=== PATIENT | male | born 1970 | race African-American/Black ===

== ENCOUNTER 2021-03-22 12:44 | Emergency (ER) | payer BC ==
--- NOTE | 2021-03-22 12:47 | EDM.PDOC ---
ED HPI GENERAL MEDICAL PROBLEM - General Stated Complaint: DEHYDRATED Time Seen by Provider: 03/22/21 12:46 Source of Information: Reports: Patient History Limitations: Reports: No Limitations - History of Present Illness INITIAL COMMENTS - FREE TEXT/NARRATIVE: HISTORY AND PHYSICAL: History of present illness: Patient is a 50-year-old male who presents to the emergency room with complaints of fatigue, subjective fever, chills, dry nonproductive cough, upper abdominal pain and decreased oral intake. Patient states he has not wanted to eat or drink much over the past 4 to 5 days, concerned he is dehydrated. He also has some generalized upper abdominal pain, nontender to touch. Patient denies any headache, change in vision, syncope or near syncope. Denies any chest pain, back pain, shortness of breath, nausea, vomiting, diarrhea, constipation or dysuria. Has not noted any blood in urine or stool. Patient has been eating and drinking appropriately. No recent travel or sick contacts. Review of systems: As per history of present illness and below otherwise all systems reviewed and negative. Past medical history: As per history of present illness and as reviewed below otherwise noncontri butory. Surgical history: As per history of present illness and as reviewed below otherwise noncontributory. Social history: See social history for further information Family history: As per history of present illness and as reviewed below otherwise noncontributory. Physical exam: General: Well developed and well nourished 50 year old black male. Alert and orientated x 3. Nontoxic in appearance and in no acute distress. Vital signs are stable and have been reviewed by me. Nursing notes were reviewed. HEENT: Atraumatic, normocephalic, pupils equal and reactive bilaterally, negative for conjunctival pallor or scleral icterus, mucous membranes moist, throat clear, neck supple, nontender, trachea midline. No drooling or trismus noted. No meningeal signs. No hot potato voice noted. Lungs: Clear to auscultation bilaterally. No wheezes, rales, or rhonchi. Chest nontender. Normal work of breathing, no accessory muscles used. Heart: S1S2, regular rate and rhythm without overt murmur, gallops, or rubs. No JVD. No peripheral edema Abdomen: Soft, nondistended, nontender. Normoactive bowel sounds. Negative for masses or costovertebral tenderness. Skin: Intact, warm, dry. No lesions or rashes noted. Hematologic: No petechiae or purpra. Mucosa appropriate color and normal nail bed color and refill. Extremities: Atraumatic, moves all extremities per self without difficulty or deficits, negative for cords or calf pain. Neurovascular unremarkable. Neuro: Awake, alert, oriented. Cranial nerves II through XII unremarkable. Cerebellum unremarkable. Motor and sensory unremarkable throughout. Exam nonfocal. Psychiatric: Mood and affect are appropriate. Normal thought process. Answering questions appropriately. Please note that the patient was seen and evaluated during the 2019 SARS-CoV-2 novel coronavirus pandemic period. Community viral transmission is ongoing at time of this encounter and the emergency department is operating under pandemic response procedures. Medical Decision Making: Patient is a 50-year-old male who presents to the emergency room with complaints of epigastric pain and upper respiratory symptoms related to possible COVID-19 diagnosis. Physical exam is unremarkable. His abdomen is nontender. We will do basic lab work and give IV fluids while awaiting results. Chest x-ray shows a small lung volumes are present with patchy consolidation seen in the left lung base. Findings may be due to pneumonia or COVID-19. Mild derangements of lab work. I have talked with the patient about today's findings, in addition to providing specific details for plan of care. Outpatient antibody therapy was offered, patient declined. He did receive a liter of fluids and states he does feel somewhat better. Vital signs remained stable. Reassessment at the time of disposition demonstrates that the patient is in no acute distress. The patient is stable for discharge, counseling was provided and we discussed in great detail signs and symptoms that would prompt them to return to the Emergency Department. Medication, follow up and supportive care measures were reviewed and discussed. Voices understanding and is agreeable to plan of care. Denies any further questions or concerns at this time. Diagnostics: CBC, CMP, Lipase, COVID-19, CXR Therapeutics: IV fluids Prescription: Outpatient antibody therapy (declined) Impression: COVID-19 Plan: 1. You were evaluated on an emergent basis. Your COVID-19 screening is positive. That means you do have the coronavirus and you are considered contagious. Your vital signs and oxygen saturation are well enough that you were able to monitor your symptoms at home. Continue to monitor for trouble breathing, new confusion or inability to arouse, bluish lips or face or any of the other symptoms we discussed -if this occurs please return to the emergency room immediately. 2. Please self quarantine until cleared by [facility] Department. Inform any persons that you have been in contact with since you started becoming symptomatic that you have tested positive; they should be made aware and take the appropriate steps as needed. 3. You can take NyQuil during the evening to help get a restful night sleep. May alternate Tylenol and ibuprofen as needed for pain and fever management. 4. [facility] will be calling you and following up with you. The [place] [employer] Hotline phone number , They are open Thursday - Thursday 7am - 7pm. Follow up with your primary care provider for re-evaluation as directed. Definitive disposition and diagnosis as appropriate pending reevaluation and review of above. upperabdomen Pain Score (Numeric/FACES): 8 - Related Data Allergies Allergy/AdvReac Type Severity Reaction Status Date / Time No Known Allergies Allergy Verified 03/22/21 12:51 Home Meds: Home Meds Aspirin 81 mg PO DAILY 03/22/21 [History] Cholecalciferol (Vitamin D3) [Vitamin D] 5,000 unit PO DAILY 03/22/21 [History] Empagliflozin [Jardiance] 25 mg PO DAILY 03/22/21 [History] Icosapent Ethyl [Vascepa] 2 tab PO BID 03/22/21 [History] metFORMIN [Glucophage] 1,000 mg PO BID 03/22/21 [History] ED ROS GENERAL - Review of Systems Review Of Systems: Comprehensive ROS is negative, except as noted in HPI. ED EXAM, GENERAL - Physical Exam Exam: See Below (See dictation) Course - Vital Signs Last Recorded V/S: Last Vital Signs Temp 101 F H 03/22/21 12:54 Pulse 95 03/22/21 12:54 Resp 20 03/22/21 12:54 BP 123/81 03/22/21 12:54 Pulse Ox 94 L 03/22/21 12:54 - Orders/Labs/Meds Labs: Laboratory Tests 03/22/21 03/22/21 03/22/21 Range/Units 13:03 13:16 13:16 WBC 5.44 (4.0-11.0) K/uL RBC 5.11 (4.50-5.90) M/uL Hgb 14.5 (13.0-17.0) g/dL Hct 42.0 (38.0-50.0) % MCV 82.2 (80.0-98.0) fL MCH 28.4 (27.0-32.0) pg MCHC 34.5 (31.0-37.0) g/dL RDW Std Deviation 41.0 (28.0-62.0) fl RDW Coeff of Abby 14 (11.0-15.0) % Plt Count 293 (150-400) K/uL MPV 10.00 (7.40-12.00) fL Neut % (Auto) 74.6 (48.0-80.0) % Lymph % (Auto) 19.7 (16.0-40.0) % [place] % (Auto) 5.3 (0.0-15.0) % Eos % (Auto) 0.0 (0.0-7.0) % Baso % (Auto) 0.4 (0.0-1.5) % Neut # (Auto) 4.1 (1.4-5.7) K/uL Lymph # (Auto) 1.1 (0.6-2.4) K/uL [place] # (Auto) 0.3 (0.0-0.8) K/uL Eos # (Auto) 0.0 (0.0-0.7) K/uL Baso # (Auto) 0.0 (0.0-0.1) K/uL Nucleated RBC % 0.0 /100WBC Nucleated RBCs # 0 K/uL Sodium 132 L (136-148) mmol/L Potassium 4.0 (3.5-5.1) mmol/L Chloride 97 L (98-107) mmol/L BUN 18 (7.0-18.0) mg/dL Creatinine 1.4 H (0.8-1.3) mg/dL Est Cr Clr Drug Dosing 76.28 mL/min Estimated GFR (MDRD) 53.9 ml/min Glucose 99 (74-106) mg/dL Calcium 8.6 (8.5-10.1) mg/dL Total Bilirubin 0.5 (0.2-1.0) mg/dL AST 120 H (15-37) IU/L ALT 106 H (14-63) IU/L Alkaline Phosphatase 63 (46-116) U/L Total Protein 8.5 H (6.4-8.2) g/dL Albumin 3.6 (3.4-5.0) g/dL Globulin 4.9 H (2.6-4.0) g/dL Albumin/Globulin Ratio 0.7 L (0.9-1.6) Lipase 419 H (73-393) U/L SARS-CoV-2 RNA (CASTRO) POSITIVE H (NEGATIVE) Meds: Medications Discontinued Medications Generic Name Dose Route Start Last Admin Trade Name Freq PRN Reason Stop Dose Admin Alum Owanka/Mag Owanka/Simeth XS 0 ml 03/22/21 14:05 15 ml/ Metoclopramide HCl 5 PO 03/22/21 14:06 mg/ Lidocaine HCl 5 ml ONETIME ONE Sodium Chloride 1,000 mls @ 999 mls/hr 03/22/21 13:00 03/22/21 13:08 Normal Saline IV 03/22/21 14:00 999 mls/hr STAT ONE Administration Ketorolac Tromethamine 30 mg 03/22/21 13:00 03/22/21 13:07 Ketorolac 30 Mg/Ml Sdv IVPUSH 03/22/21 13:01 30 mg ONETIME ONE Administration Departure - Departure Time of Disposition: 14:05 Disposition: Home, Self-Care 01 Clinical Impression: COVID-19 - Discharge Information Instructions: 10 Things You Can Do to Manage Your COVID-19 Symptoms at Home - [facility] (10/26/2020) Additional Instructions: The following information is given to patients seen in the emergency department who are being discharged to home. This information is to outline your options for follow-up care. We provide all patients seen in our emergency department with a follow-up referral. The need for follow-up, as well as the timing and circumstances, are variable depending upon the specifics of your emergency department visit. If you don't have a primary care physician on staff, we will provide you with a referral. We always advise you to contact your personal physician following an emergency department visit to inform them of the circumstance of the visit and for follow-up with them and/or the need for any referrals to a consulting specialist. The emergency department will also refer you to a specialist when appropriate. This referral assures that you have the opportunity for follow-up care with a specialist. All of these measure are taken in an effort to provide you with optimal care, which includes your follow-up. Under all circumstances we always encourage you to contact your private physician who remains a resource for coordinating your care. When calling for follow-up care, please make the office aware that this follow-up is from your recent emergency room visit. If for any reason you are refused follow-up, please contact the [facility] Emergency Department at and asked to speak to the emergency department charge nurse. [facility] [address] [place] [id number] [facility] [address] [place] [id number] Thank you for choosing the [facility] emergency department in [place] for your medical needs today. It was a pleasure caring for you. Today you were seen in the emergency department for COVID-19. 1. Your COVID-19 screening is positive. That means you do have the coronavirus and you are considered contagious. Your vital signs and oxygen saturation are well enough that you were able to monitor your symptoms at home. Continue to m onitor for trouble breathing, new confusion or inability to arouse, bluish lips or face or any of the other symptoms we discussed -if this occurs please return to the emergency room immediately. 2. Please self quarantine until cleared by [facility] Department. Inform any persons that you have been in contact with since you started becoming symptomatic that you have tested positive; they should be made aware and take the appropriate steps as needed. 3. You can take NyQuil during the evening to help get a restful night sleep. May alternate Tylenol and ibuprofen as needed for pain and fever management. 4. [facility] will be calling you and following up with you. The [place] COVID 19 Hotline phone number , They are open Thursday - Thursday 7am - 7pm. Follow up with your primary care provider for re-evaluation as directed. Sepsis Event Note (ED) - Focused Exam Vital Signs: Vital Signs Temp Pulse Resp BP Pulse Ox 03/22/21 12:54 101 F H 95 20 123/81 94 L
[2021-03-22] MEDS ORDERED: Sodium Chloride 0.9% 1,000 ML IV ONE (13:00)
[2021-03-22] MEDS ORDERED: Ketorolac 30 MG/ML SDV IVPUSH ONE (13:00)
--- NOTE | 2021-03-22 13:36 | CR ---
INDICATION: Cough TECHNIQUE: Chest radiograph 1 view COMPARISON: None FINDINGS: Mediastinum: The mediastinum is normal in appearance. The heart silhouette is normal in size and morphology. Lung: Small lung volumes are present with patchy consolidation seen in the left lung base. No sign of pleural effusion seen. No pneumothorax is identified. Bone and Soft tissue: Unremarkable for age. IMPRESSION: 1. Small lung volumes are present with patchy consolidation seen in the left lung base. Findings may be due to pneumonia or COVID-19. Dictated by Pete Wiley MD @ 03/22/2021 1:34:18 PM Dictated by: Pete Wiley MD @ 03/22/2021 13:34:29 (Electronically Signed)
[2021-03-22 13:55] LABS: CARBON DIOXIDE,CO2 25.5 mmol/L (21.0-32.0)
[2021-03-22] MEDS ORDERED: Alum Hydro/Mag Hydro/Simeth XS 15 ML, Metoclopramide 5 MG, Lidocaine 2% 5 ML PO ONE ×3 (14:05)
== END 2021-03-22 14:21 | disposition home or self-care (01) ==
LOC: MW.ED 12:44
DX: U07.1 COVID-19 (principal)
CPT/HCPCS: 36415; 71045; 80053; 83690; 85025; 87635; 96374; 99284; A9270; J1885; J7030; U0002